=== PATIENT | male | born 1955 | race Caucasian/White ===

== ENCOUNTER 2021-06-03 19:57 | Emergency (ER) | payer OTHER ==
[~2021-06-03 19:57] MED LIST: ACETAMINOPHEN325 MG PO; ADULT LOW DOSE81 MG PO; ALEVE220 MG PO; ALLERGY10 MG PO; ALLOPURINOL300 MG PO; ARMOUR THYROID30 MG PO; CERTAGEN1 EACH PO; CO Q10200 MG PO; CRESTOR10 MG PO; FEOSOL325 MG PO; LAXATIVE OF CHOICE PO; LOVAZA1 GM PO; MOBIC7.5 MG PO; NORVASC5 MG PO; PERCOCET 5-3251 EACH PO; PRILOSEC20 MG PO; SYNTHROID75 MCG PO; TOPROL XL 50 MG50 MG PO; VITAMIN B-121000 MC1 PO; VITAMIN D1000 UNI1 PO; ZESTRIL40 MG PO
[2021-06-03 20:39] LABS: BASOPHIL 0.4 % (0-2); EOSINOPHIL 3.1 % (0-7); HGB 12.1 g/dl (13.2-18.0); LYMPHOCYTE 9.5 % (15-48); MCH 28.5 pg (25.0-31.0); MCHC 32.7 g/dL (32.0-36.0); MCV 87.1 fL (78.0-100.0); MPV 9.8 fL (6.0-9.5); NEUTROPHIL 78.3 % (41-80); NRBC 0; PLT 109 K/uL (150-400); RBC 4.25 M/uL (4.70-6.00); RDW 14.9 % (11.5-14.0); WBC 11.7 K/uL (4.0-10.5)
[2021-06-03 20:57] LABS: ALBUMIN 3.5 g/dL (3.4-5.0); BILIRUBIN - TOTAL 0.9 mg/dL (0.2-1.0); BUN/CREAT RATIO (CALC) 17.8 RATIO; CREATININE 1.57 mg/dL (0.67-1.17); GLOBULIN (CALCULATION) 4.6 g/dL; POTASSIUM 4.5 mmol/L (3.5-5.1); TOTAL PROTEIN 8.1 g/dL (6.4-8.2)
[2021-06-03 21:54] LABS: BILIRUBIN NEGATIVE (NEGATIVE); BLOOD TRACE-INTACT Ery/uL (NEGATIVE); CLARITY CLEAR (CLEAR); COLOR YELLOW (YELLOW); GLUCOSE (U) NORMAL (NORMAL); LEUKOCYTES TRACE Leu/uL (NEGATIVE); NITRITE NEGATIVE (NEGATIVE); PROTEIN NEGATIVE (NEGATIVE); UROBILINOGEN 0.2 mg/dL (0.2-1.0); pH 5.5 (5.0-9.0)
[2021-06-03 22:01] LABS: AMORPHOUS URATES CRYSTALS MODERATE; BACTERIA TRACE; MUCOUS MODERATE; SQUAMOUS EPITHELIAL CELLS RARE
[2021-06-03] MEDS ORDERED: CARAFATE1 GM PO (22:36)
[2021-06-04] MEDS ORDERED: OTEZLA30 MG PO (16:24)
[2021-06-04] MEDS ORDERED: METFORMIN HCL500 M1 PO (16:25)
[2021-06-04] MEDS ORDERED: MILK THISTLE150 MG PO (16:25)
[2021-06-04] MEDS ORDERED: FLOMAX0.4 MG PO (16:25)
[2021-06-04] MEDS ORDERED: ONDANSETRON HCL8 MG PO (16:26)
[2021-06-04] MEDS ORDERED: ATARAX25 MG PO (16:26)
[2021-07-02] MEDS ORDERED: METHYLPREDNISOLO4 M1 PO (15:22)
[2021-07-02] MEDS ORDERED: COLCHICINE0.6 MG PO (15:23)
[2021-07-06] MEDS ORDERED: PRINIVIL10 MG PO (09:46)
== END 2021-06-03 23:00 | disposition home or self-care (01) ==
LOC: FER 19:57
PROVIDERS: Emergency Medicine
DX: R10.13 Epigastric pain (principal); K74.60 Unspecified cirrhosis of liver; I10 Essential (primary) hypertension; E11.9 Type 2 diabetes mellitus without complications; Z87.891 Personal history of nicotine dependence; Z79.84 Long term (current) use of oral hypoglycemic drugs
CPT/HCPCS: 36415; 80053; 81001; 82150; 83690; 85025; J2270; J2405; J7030